=== PATIENT | female | born 1995 | race Caucasian/White ===

== ENCOUNTER 2016-07-03 17:29 | Observation (INO) | payer OTHER ==
[2016-07-03] MEDS ORDERED: IV RINGERS,LACTATED 1000ML 1,000 ML IV SCH (18:00)
== END 2016-07-03 19:24 | disposition home or self-care (01) ==
LOC: 3 SO LND 17:29
PROVIDERS: ADMIT Obstetrics & Gynecology; ATTEND Obstetrics & Gynecology
DX: O99.512 Diseases of the respiratory system complicating pregnancy, second trimester (principal); R06.02 Shortness of breath; Z3A.22 22 weeks gestation of pregnancy
CPT/HCPCS: 96360; G0378; G0379; J7120